=== PATIENT | male | born 1985 ===

== ENCOUNTER 2023-02-28 03:48 | Outpatient (CLI) | payer BC, SELFPAY ==
[2023-02-28 15:20] LABS: Abs Immature Grans 0.03 10^3/uL (0.0-0.06); Absolute Basophil Count 0.06 10^3/uL (0.0-0.2); Absolute Eosinophil Count 0.06 10^3/uL (0.0-0.7); Absolute Lymphocyte Count 1.76 10^3/uL (1.2-3.4); Absolute Monocyte Count 1.06 10^3/uL (0.1-0.8); Absolute Neutrophil Count 7.14 10^3/uL (1.2-6.7); Basophils % 0.6; Eosinophils % 0.6; HCT 45.5 % (40.0-50.0); HGB 15.4 g/dL (13.5-17.5); Immature Grans % 0.3; Lymphocytes % 17.4; MCH 32.6 pg (27.0-33.0); MCHC 33.8 % (32.0-36.0); MCV 96 fL (80-95); Monocytes % 10.5; Neutrophils % 70.6; Platelet Count 285 10^3/uL (130-400); RBC 4.72 10^6/uL (4.36-5.78); RDW 12.8 % (11.8-14.1); RDW-SD 45.4 fL; WBC 10.11 10^3/uL (4.4-10.8)
[2023-02-28 15:27] LABS: ESR 10 mm/hr (0-15)
[2023-02-28 18:12] LABS: ALT 49 U/L (16-63); AST 21 U/L (15-37); Albumin 4.4 g/dL (3.4-5.0); Alkaline Phosphatase 66 U/L (46-116); Anion Gap 9.6 mmol/L (3-11); BUN 23 mg/dL (7-18); Bilirubin, Total 0.9 mg/dL (0.2-1.0); C-Reactive Protein 0.32 mg/dL (0.0-0.3); CO2 27.4 mmol/L (21.0-32.0); CREATININE 0.9 mg/dL (0.70-1.30); Calcium 9.9 mg/dL (8.5-10.1); Chloride 101 mmol/L (98-107); Estimated GFR 111.42 (mL/min/1.73m2); Glucose 90 mg/dL (74-106); Potassium 4.2 mmol/L (3.5-5.1); Sodium 138 mmol/L (136-145)
[2023-02-28 19:34] LABS: Calculated LDL 135 mg/dL (<100); Cholesterol 246 mg/dL (<200); HDL Cholesterol 90 mg/dL (40-60); Triglyceride 109 mg/dL (<150)
== END 2023-02-28 03:49 | disposition home or self-care (01) ==
LOC: LBO 03:49
PROVIDERS: Visit Provider Internal Medicine Rheumatology
DX: M05.79 Rheumatoid arthritis with rheumatoid factor of multiple sites without organ or systems involvement (principal); Z79.899 Other long term (current) drug therapy
CPT/HCPCS: 36415; 80053; 80061; 85652; 85025; 86140